=== PATIENT | male | born 1940 | race Caucasian/White ===

== ENCOUNTER 2018-02-04 06:50 | Day surgery (SDC) | payer OTHER ==
[~2018-02-04] VITALS: Ht 175.3 cm; Wt 70.3 kg
[~2018-02-04 06:50] MED LIST: ACET-1080 PO; ALBU1AER4 IN; ASPI81TA27 PO; CHOL200021 PO; FURO40TA4 PO; LOSA25TA9 PO; METO2.5T11 PO; METO25TA62 PO; OMEP20TA PO; POTA10TA51 PO; ROPI1TAB22 PO
[2018-02-04] MEDS ORDERED: LIDOCAINE HCL 2 %PF INJ 10ML AMP IJ ONE (07:23)
[2018-02-04] MEDS ORDERED: IODIXANOL 320MG/ML 100ML BTL IV ONE (07:23)
[2018-02-04] MEDS ORDERED: fentaNYL CITRATE 100 MCG/2 ML VL ONE (08:31)
[2018-02-04] MEDS ORDERED: MIDAZOLAM HCL 1MG/1ML-2 ML VIAL ONE ×2 (08:31→08:33)
[2018-02-04] MEDS ORDERED: LIDOCAINE VISCOUS 2% 15ML UD ONE (08:31)
[2018-02-04] MEDS ORDERED: LIDOCAINE VISCOUS 2% 15ML UD PO ONE (08:45)
[2018-02-04] MEDS ORDERED: MIDAZOLAM HCL 5 MG/ML-1ML VIAL IV ONE (08:45)
[2018-02-04] MEDS ORDERED: fentaNYL CITRATE 100 MCG/2 ML VL IV ONE (08:45)
[2018-02-04] MEDS ORDERED: ANGIOMAX 250 MG VIAL IV ONE (09:12)
[2018-02-04] MEDS ORDERED: SODIUM CHL 0.9% 0 ML ONE (09:13)
[2018-02-04] MEDS ORDERED: VERAPAMIL 2.5MG/ML INJ 2ML VIAL IV ONE (09:13)
[2018-02-04] MEDS ORDERED: HEPARIN 1,000 UNITS/ml 1ML VIAL ONE (09:36)
== END 2018-02-04 11:50 | disposition home or self-care (01) ==
LOC: CATH 06:50
PROVIDERS: ATTEND Internal Medicine
DX: I42.9 Cardiomyopathy, unspecified (principal); I50.9 Heart failure, unspecified; Z95.1 Presence of aortocoronary bypass graft; E66.9 Obesity, unspecified; I10 Essential (primary) hypertension; I73.9 Peripheral vascular disease, unspecified
CPT/HCPCS: 93312; 93458; C1769; C1894; J1644; J2250; J3010; J7030; Q9967; 99152